=== PATIENT | male | born 1980 | race Caucasian/White ===

== ENCOUNTER 2023-06-09 19:50 | Emergency (ER) | payer SELFPAY ==
[2023-06-09] MEDS ORDERED: Lidocaine 2% w/Epinephrine 1:200K 20 ML VIAL ONE (20:39)
[2023-06-09] MEDS ORDERED: Boostrix 0.5 ML (Tdap) VIAL (>/=7 yrs of age) ONE (20:40)
== END 2023-06-09 21:23 ==
LOC: BURERS 19:50
DX: S61.212A Laceration without foreign body of right middle finger without damage to nail, initial encounter (principal); W22.8XXA Striking against or struck by other objects, initial encounter; Z23 Encounter for immunization
CPT/HCPCS: 12002; 90471; 90715